=== PATIENT | female | born 1955 | race Hispanic/Latino ===

== ENCOUNTER → 2025-01-20 | Outpatient (CLI) | payer OTHER ==
--- NOTE | 2025-01-20 11:55 | HMCIMG ---
DEXA BONE DENSITY SURVEY HISTORY: Osteoporosis COMPARISON: None FINDINGS: Bone densitometry study was performed. Bone mineral density of the lumbar spine is 0.833 gram per centimeter square which corresponds to a T score of -1.9 and a Z score of 0.1. Bone mineral density of the left hip is 0.887 grams per centimeter square which corresponds to a T score of 0.6 and a Z score of 2.8. IMPRESSION: 1. Normal bone mineral density of the left hip and osteopenia of lumbar spine
== END | disposition home or self-care (01) ==
LOC: CANSCHCLI → RAH 11:05
PROVIDERS: ATTEND Internal Medicine
DX: M81.0 Age-related osteoporosis without current pathological fracture (principal)
CPT/HCPCS: 77080